=== PATIENT | male | born 1990 | race Two or more races ===

== ENCOUNTER 2021-11-19 12:21 | Emergency (ER) | payer OTHER ==
[~2021-11-19] VITALS: Ht 182.9 cm; Wt 83.9 kg
== END 2021-11-19 18:14 | disposition home or self-care (01) ==
LOC: ER 12:21
DX: N39.0 Urinary tract infection, site not specified (principal); R10.2 Pelvic and perineal pain; Z91.013 Allergy to seafood; Z91.018 Allergy to other foods

== ENCOUNTER 2022-10-25 22:54 | Emergency (ER) | payer OTHER ==
[~2022-10-25] VITALS: Ht 182.9 cm; Wt 77.1 kg
[2022-10-26] MEDS ORDERED: ACETAMINOPHEN500 M2 PO (01:56)
[2022-10-26] MEDS ORDERED: ZYRTEC10 MG PO (01:56)
[2022-10-26] MEDS ORDERED: MUCINEX DM ER1 EAC1 PO (01:56)
[2022-10-26] MEDS ORDERED: AZITHROMYCIN250 MG PO (01:56)
== END 2022-10-26 02:03 | disposition home or self-care (01) ==
LOC: ER 22:54
DX: J06.9 Acute upper respiratory infection, unspecified (principal); B34.9 Viral infection, unspecified; Z20.822 Contact with and (suspected) exposure to COVID-19; Z91.013 Allergy to seafood; Z91.018 Allergy to other foods

== ENCOUNTER 2022-12-12 16:02 | Emergency (ER) | payer OTHER ==
[~2022-12-12] VITALS: Ht 182.9 cm; Wt 78.9 kg
[~2022-12-12 16:02] MED LIST: ACETAMINOPHEN500 M2 PO; AZITHROMYCIN250 MG PO; MUCINEX DM ER1 EAC1 PO; ZYRTEC10 MG PO
[2022-12-12] MEDS ORDERED: NAPROXEN500 MG PO (16:12)
[2022-12-12] MEDS ORDERED: GABAPENTIN100 M2 PO (22:10)
== END 2022-12-12 22:16 | disposition home or self-care (01) ==
LOC: ER 16:02
DX: R09.81 Nasal congestion (principal); J02.9 Acute pharyngitis, unspecified; Z20.822 Contact with and (suspected) exposure to COVID-19